=== PATIENT | male | born 1995 | race Caucasian/White ===

== ENCOUNTER 2020-09-09 00:31 | Emergency (ER) | payer OTHER ==
[~2020-09-09] VITALS: Ht 195.6 cm; Wt 136.1 kg
[~2020-09-09 00:31] MED LIST: COLACE1 EAC1 RC; COLACE100 MG PO; IBUPROFEN 800800 M1 PO; MOM PO; NOHOMEMEDICATIONS; ONDANSETRON HCL4 M2 PO; TRAMADOL 50 MG50 MG PO
[2020-09-09 00:42] LABS: URINE BILIRUBIN NEGATIVE (Negative); URINE BLOOD NEGATIVE (Negative); URINE CLARITY CLEAR; URINE COLOR YELLOW; URINE GLUCOSE-RANDOM NEGATIVE (Negative); URINE KETONES NEGATIVE (Negative); URINE LEUKOCYTES NEGATIVE (Negative); URINE NITRITE NEGATIVE (Negative); URINE PROTEIN NEGATIVE (Negative); URINE SPECIFIC GRAVITY >= 1.030 (1.005-1.030); URINE UROBILINOGEN 0.2 E.U./dl (0.2-1.0)
[2020-09-09 00:52] LABS: ABSOLUTE BASOPHILS 0.1 thou/uL (0.0-0.2); ABSOLUTE EOSINOPHILS 0.4 thou/uL (0.0-0.7); ABSOLUTE LYMPHOCYTES 3.2 thou/uL (0.8-5.3); ABSOLUTE MONOCYTES 0.6 thou/uL (0.0-1.2); ABSOLUTE NEUTROPHILS 6.8 thou/uL (1.6-8.1); BASOPHILS 1.2 %; EOSINOPHILS 3.5 %; HEMATOCRIT 44.3 % (42.0-52.0); HEMOGLOBIN 14.6 gm/dL (14.0-18.0); LYMPHOCYTES 28.8 %; MCH 28.5 pg (26.0-34.0); MCV 86.6 fL (80.0-100.0); MONOCYTES 5.5 %; MPV 9.4 fl. (7.2-11.1); NUCLEATED RBCS 0 /100WBC; PLATELET COUNT* 215 thou/uL (150-400); RBC 5.11 mil/uL (4.50-6.00); RDW-CV 13.1 % (10.5-14.5); WBC 11.1 thou/uL (4.0-11.0)
[2020-09-09 00:55] LABS: AMP/METHAMP Negative (Negative); BARBITURATES Negative (Negative); BENZODIAZEPINES Negative (Negative); COCAINE Negative (Negative); METHADONE Negative (Negative); OPIATES Negative (Negative); PCP Negative (Negative); THC POSITIVE (Negative)
[2020-09-09 01:05] LABS: CALCIUM 9.2 mg/dL (8.5-10.1); CREATININE 0.9 mg/dL (0.6-1.3); POTASSIUM 3.9 mmol/L (3.5-5.1); PROTIME 10.3 Seconds (9.20-11.50)
[2020-09-09 01:15] LABS: MAGNESIUM 2.1 mg/dL (1.8-2.4); TOTAL BILIRUBIN 0.3 mg/dL (<0.1-1.0); TOTAL PROTEIN 7.6 g/dL (6.4-8.2)
[2020-09-09] MEDS ORDERED: FLEXERIL PO (01:52)
[2020-09-09] MEDS ORDERED: MEDROLDOSEPACK PO (01:52)
[2020-09-09 02:05] VITALS: BP 157/88
--- NOTE | 2020-09-09 16:00 | EKG ---
[place] [address] ELECTROCARDIOGRAM REPORT Name: SHAHRZAD CUEVAS Room: [facility]#: [id number] Admission: 09/09/20 Attend Phys: Discharge: 09/09/20 Date of : 89 Date of Service: 09/09/20 0047 Report #: [id number] THIS REPORT FOR: //name// [facility] ED Test Date: 2020-09-09 Test Time: 00:47:44 Pat Name: SHAHRZAD CUEVAS Department: Room: Gender: [employer]: : 1995 Requested By: Adamaris Guerrero Order Number: [id number] MD: Darwin Ortiz Measurements Intervals [place] Rate: 81 P: 76 FL: 121 QRS: 35 QRSD: 87 T: -2 QT: 339 QTc: 394 Interpretive Statements Sinus rhythm Nonspecific T wave flattening and inversion inferior leads ST elevation, consider early repolarization no previous ECG available for comparison Electronically Signed On 09-09-2020 16:00:07 [employer] by Darwin Ortiz [email or web address] <ELECTRONICALLY SIGNED> By: Darwin Ortiz MD, FAC 09/09/20 1600 Darwin Ortiz MD, [facility] /EPI
== END 2020-09-09 02:05 | disposition home or self-care (01) ==
LOC: M.ERS 00:31
PROVIDERS: Emergency Medicine
DX: R20.2 Paresthesia of skin (principal); Z20.828 Contact with and (suspected) exposure to other viral communicable diseases; Z88.2 Allergy status to sulfonamides; Z91.010 Allergy to peanuts; Z90.89 Acquired absence of other organs; Z98.890 Other specified postprocedural states

== ENCOUNTER 2020-11-06 11:31 | Emergency (ER) | payer OTHER ==
[~2020-11-06] VITALS: Ht 195.6 cm; Wt 129.3 kg
[~2020-11-06 11:31] MED LIST changes: +FLEXERIL PO; +MEDROLDOSEPACK PO
[2020-11-06 12:16] LABS: ABSOLUTE BASOPHILS 0.1 thou/uL (0.0-0.2); ABSOLUTE EOSINOPHILS 0.6 thou/uL (0.0-0.7); ABSOLUTE LYMPHOCYTES 2.7 thou/uL (0.8-5.3); ABSOLUTE MONOCYTES 0.6 thou/uL (0.0-1.2); ABSOLUTE NEUTROPHILS 4.8 thou/uL (1.6-8.1); EOSINOPHILS 6.9 %; HEMATOCRIT 44.5 % (42.0-52.0); HEMOGLOBIN 14.7 gm/dL (14.0-18.0); LYMPHOCYTES 30.4 %; MCH 28.5 pg (26.0-34.0); MCHC 33.1 g/dL (28.0-37.0); MCV 86.2 fL (80.0-100.0); MONOCYTES 7.3 %; MPV 9.4 fl. (7.2-11.1); NUCLEATED RBCS 0 /100WBC; PLATELET COUNT* 213 thou/uL (150-400); POLYS 54.4 %; RBC 5.16 mil/uL (4.50-6.00); WBC 8.8 thou/uL (4.0-11.0)
[2020-11-06 12:37] LABS: CALCIUM 9.3 mg/dL (8.5-10.1); CREATININE 0.8 mg/dL (0.6-1.3)
[2020-11-06 12:41] LABS: ALBUMIN 3.5 g/dL (3.4-5.0); TOTAL BILIRUBIN 0.4 mg/dL (<0.1-1.0); TOTAL PROTEIN 7.1 g/dL (6.4-8.2)
[2020-11-06 13:46] LABS: URINE BILIRUBIN NEGATIVE (Negative); URINE BLOOD NEGATIVE (Negative); URINE CLARITY CLEAR; URINE COLOR YELLOW; URINE GLUCOSE-RANDOM NEGATIVE (Negative); URINE KETONES NEGATIVE (Negative); URINE LEUKOCYTES-REFLEX NEGATIVE (Negative); URINE NITRITE-REFLEX NEGATIVE (Negative); URINE PROTEIN NEGATIVE (Negative); URINE UROBILINOGEN 0.2 E.U./dl (0.2-1.0)
[2020-11-06] MEDS ORDERED: OMEPRAZOLE 20 M20 M1 PO (14:29)
[2020-11-06] MEDS ORDERED: PEPCID20 MG PO (14:29)
[2020-11-06] MEDS ORDERED: APAP W/CODEINE1 TA2 PO (14:29)
[2020-11-06 14:44] VITALS: BP 130/79
== END 2020-11-06 14:45 | disposition home or self-care (01) ==
LOC: M.ERS 11:31
PROVIDERS: Physician Assistant
DX: R10.33 Periumbilical pain (principal); R10.31 Right lower quadrant pain; Z90.89 Acquired absence of other organs; Z88.2 Allergy status to sulfonamides; Z91.018 Allergy to other foods

== ENCOUNTER 2020-11-08 10:00 | Emergency (ER) | payer OTHER ==
[~2020-11-08] VITALS: Ht 195.6 cm; Wt 129.3 kg
[~2020-11-08 10:00] MED LIST changes: +APAP W/CODEINE1 TA2 PO; +OMEPRAZOLE 20 M20 M1 PO; +PEPCID20 MG PO
[2020-11-08 10:28] LABS: ABSOLUTE BASOPHILS 0.1 thou/uL (0.0-0.2); ABSOLUTE EOSINOPHILS 0.5 thou/uL (0.0-0.7); ABSOLUTE LYMPHOCYTES 2.5 thou/uL (0.8-5.3); ABSOLUTE MONOCYTES 0.7 thou/uL (0.0-1.2); ABSOLUTE NEUTROPHILS 5.2 thou/uL (1.6-8.1); BASOPHILS 1.1 %; EOSINOPHILS 5.6 %; HEMATOCRIT 44.1 % (42.0-52.0); HEMOGLOBIN 14.8 gm/dL (14.0-18.0); LYMPHOCYTES 27.8 %; MCHC 33.6 g/dL (28.0-37.0); MCV 86.4 fL (80.0-100.0); MONOCYTES 7.5 %; MPV 9.5 fl. (7.2-11.1); NUCLEATED RBCS 0 /100WBC; PLATELET COUNT* 205 thou/uL (150-400); RBC 5.11 mil/uL (4.50-6.00); RDW-CV 13.5 % (10.5-14.5)
[2020-11-08 10:39] LABS: CREATININE 0.9 mg/dL (0.6-1.3)
[2020-11-08 10:43] LABS: ALBUMIN 3.7 g/dL (3.4-5.0); TOTAL BILIRUBIN 0.5 mg/dL (<0.1-1.0); TOTAL PROTEIN 7.3 g/dL (6.4-8.2)
[2020-11-08 10:51] LABS: URINE BILIRUBIN NEGATIVE (Negative); URINE BLOOD NEGATIVE (Negative); URINE CLARITY CLEAR; URINE COLOR YELLOW; URINE GLUCOSE-RANDOM NEGATIVE (Negative); URINE KETONES NEGATIVE (Negative); URINE LEUKOCYTES-REFLEX NEGATIVE (Negative); URINE NITRITE-REFLEX NEGATIVE (Negative); URINE PROTEIN NEGATIVE (Negative); URINE UROBILINOGEN 0.2 E.U./dl (0.2-1.0)
[2020-11-08 11:28] VITALS: BP 132/97
== END 2020-11-08 11:29 | disposition home or self-care (01) ==
LOC: M.ERS 10:00
PROVIDERS: Family Medicine
DX: R10.84 Generalized abdominal pain (principal); Z90.89 Acquired absence of other organs; Z88.2 Allergy status to sulfonamides; Z91.010 Allergy to peanuts; Z91.018 Allergy to other foods

== ENCOUNTER 2021-05-19 08:38 | Emergency (ER) | payer OTHER ==
[~2021-05-19] VITALS: Ht 195.6 cm; Wt 133.8 kg
[2021-05-19] MEDS ORDERED: TESSALON PERLE100 M1 PO (10:03)
[2021-05-19 10:12] VITALS: BP 137/86
== END 2021-05-19 10:12 | disposition home or self-care (01) ==
LOC: M.ERS 08:38
DX: B34.9 Viral infection, unspecified (principal); Z20.822 Contact with and (suspected) exposure to COVID-19; Z90.49 Acquired absence of other specified parts of digestive tract; Z98.890 Other specified postprocedural states